=== PATIENT | female | born 2000 | race Caucasian/White ===

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

== ENCOUNTER 2023-05-20 13:12 | Emergency (ER) | payer BC, OTHER ==
[~2023-05-20] VITALS: Ht 160 cm; Wt 46.2 kg
[2023-05-20 13:25] VITALS: BP 113/77; PULSE 66; RESP 17; O2SAT 99
[2023-05-20] MEDS ORDERED: dexamethasone sod phosphate 10mg/ml inj IM STA (13:47)
[2023-05-20] MEDS ORDERED: LIDOcaine 5% patch TP STA (13:47)
[2023-05-20] MEDS ORDERED: ibuprofen tablet 400 MG TABLET PO ONE (13:50)
== END 2023-05-20 14:17 | disposition home or self-care (01) ==
LOC: ER 13:12
DX: M43.6 Torticollis (principal)
CPT/HCPCS: 96372; 99283; J1100